=== PATIENT | male | born 1955 | race Caucasian/White ===

== ENCOUNTER → 2023-06-24 | Day surgery (SDC) | payer OTHER, MEDICAID | END | disposition home or self-care (01) | LOC: SDS 08:00 | PROVIDERS: ATTEND Internal Medicine Gastroenterology | DX: K62.5 Hemorrhage of anus and rectum (principal); K64.8 Other hemorrhoids; I10 Essential (primary) hypertension; E11.9 Type 2 diabetes mellitus without complications; I25.10 Atherosclerotic heart disease of native coronary artery without angina pectoris; Z86.73 Personal history of transient ischemic attack (TIA), and cerebral infarction without residual deficits | CPT/HCPCS: 45378; 82962; G0378; J2250; J2175 ==

== ENCOUNTER 2023-06-25 07:00 | Day surgery (SDC) | payer OTHER, MEDICAID ==
[~2023-06-25] VITALS: Ht 167.6 cm; Wt 72.6 kg
[~2023-06-25 07:00] MED LIST: MEPERIDINE 100 MG INJ. 100 MG/ML VIAL ONE; MIDAZOLAM HCL 5 MG/5 ML VIAL ONE
[2023-06-25] MEDS ORDERED: MIDAZOLAM HCL 5 MG/5 ML VIAL ONE (08:23)
[2023-06-25] MEDS ORDERED: MEPERIDINE 100 MG INJ. 100 MG/ML VIAL ONE (08:23)
[2023-06-25 08:30] VITALS: O2SAT 100
[2023-06-25 12:53] VITALS: BP_SYST 124; PULSE 62; RESP 11
== END 2023-06-25 10:30 ==
LOC: SDS 07:00 → SMU 07:14 → SDS 10:30
PROVIDERS: ATTEND Internal Medicine Gastroenterology
DX: K62.5 Hemorrhage of anus and rectum (principal); K62.1 Rectal polyp; K64.8 Other hemorrhoids; I10 Essential (primary) hypertension; E78.5 Hyperlipidemia, unspecified; I25.10 Atherosclerotic heart disease of native coronary artery without angina pectoris; Z79.899 Other long term (current) drug therapy
CPT/HCPCS: 45385; 82962; 88305; 99153; 99152; G0378; J2250; J2175; 45378